=== PATIENT | male | born 1975 | race Two or more races ===

== ENCOUNTER 2022-07-02 11:11 | Inpatient (IN) | payer OTHER ==
[~2022-07-02] VITALS: Ht 165.1 cm; Wt 78.0 kg
[2022-07-02] MEDS ORDERED: SODIUM CHLORIDE 0.9% 1000ML 1,000 ML IV STA (11:19)
[2022-07-02] MEDS ORDERED: ONDANSETRON HCL INJ 2MG/ML 2ML 2 MG/ML VIAL IV STA (11:19)
[2022-07-02] MEDS ORDERED: Morphine 4mg INJECTION 4 MG/ML INJ IV STA (11:19)
[2022-07-02 11:49] LABS: BASOPHILS # (AUTO) 0.1 (0.0-0.1); BASOPHILS % 0.6 % (0.0-1.0); HEMATOCRIT 49.7 % (38.2-49.6); HEMOGLOBIN 17.9 g/dL (14.0-18.0); LYMPHOCYTES # (AUTO) 0.7 (1.0-3.2); LYMPHOCYTES % 5.5 % (18.0-39.1); MEAN CORPUSCULAR HEMOGLOBIN 30.2 pg (28-32); MEAN CORPUSCULAR VOLUME 83.8 fL (81-99); MONOCYTES # (AUTO) 0.9 (0.2-0.8); MONOCYTES % 6.5 % (4.4-11.3); NEUTROPHILS # (AUTO) 11.5 (2.1-6.9); NEUTROPHILS % 86.3 % (38.7-80.0); PLATELET COUNT 161 x10e3/uL (140-360); RED BLOOD COUNT 5.93 x10e6/uL (4.3-5.7); RED CELL DISTRIBUTION WIDTH 11.7 % (11.7-14.4)
[2022-07-02] MEDS: FAMOTIDINE 20 MG/2 ML VIAL IV SCH ×2 (11:50→17:47)
[2022-07-02 12:16] LABS: ALBUMIN 3.7 g/dL (3.5-5.0); ANION GAP 18.5 mmol/L (8-16); CALCIUM 9.2 mg/dL (8.4-10.2); CREATININE, SERUM 0.82 mg/dL (0.72-1.25); POTASSIUM 3.5 mmol/L (3.5-5.1)
[2022-07-02 12:24] LABS: CREATINE KINASE MB 0.7 ng/mL (0-5.0)
[2022-07-02] MEDS ORDERED: IOPAMIDOL 370 MG/ML 100 ML INFUS..BTL INJ ONE (12:28)
[2022-07-02 13:30] LABS: COLOR,URINE YELLOW (YELLOW)
[2022-07-02 13:31] LABS: CLARITY,URINE CLOUDY (CLEAR); KETONES,URINE 2+ (NEGATIVE); LEUKOCYTE ESTERASE ,URINE NEGATIVE (NEGATIVE); NITRITE,URINE POSITIVE (NEGATIVE); PROTEIN,URINE DIPSTICK 2+ (NEGATIVE); URINE UROBILINOGEN 1 mg/dL (0.2 - 1)
[2022-07-02 13:32] LABS: BACTERIA,URINE MANY /HPF; EPITHELIAL CELLS,URINE MODERATE /LPF; TRANSITIONAL EPI CELLS,URINE FEW
[2022-07-02] MEDS ORDERED: ONDANSETRON HCL INJ 2MG/ML 2ML 2 MG/ML VIAL IV PRN (14:30)
[2022-07-02] MEDS: SODIUM CHLORIDE 0.9% 1000ML 1,000 ML IV SCH (14:55)
[2022-07-02] MEDS: Morphine 4mg INJECTION 4 MG/ML INJ IV PRN ×3 (14:55→23:20)
[2022-07-02 16:15] VITALS: BP 123/82
[2022-07-02 16:56] VITALS: BP 123/82
[2022-07-02 17:09] VITALS: BP 123/82
[2022-07-02] MEDS ORDERED: RABEPRAZOLE SOD20 MG PO (19:23)
[2022-07-02] MEDS ORDERED: SUCRALFATE1 GM PO (19:23)
[2022-07-02] MEDS ORDERED: ROSUVASTATIN CA20 MG PO (19:23)
[2022-07-02] MEDS ORDERED: DICYCLOMINE HCL20 MG PO (19:23)
[2022-07-02] MEDS ORDERED: METOPROLOL SUCC25 MG PO (19:23)
[2022-07-02 20:28] VITALS: BP 127/88
[2022-07-02 23:06] LABS: CREATINE KINASE 43 IU/L (30-200)
[2022-07-02 23:09] VITALS: BP 127/88
[2022-07-03] VITALS (8 sets, daily range): BP systolic 117–155; BP diastolic 82–92
[2022-07-03] MEDS: SODIUM CHLORIDE 0.9% 1000ML 1,000 ML IV SCH ×3 (03:22→14:37)
[2022-07-03] MEDS: Morphine 4mg INJECTION 4 MG/ML INJ IV PRN ×2 (03:22→08:05)
[2022-07-03 05:54] LABS: BASOPHILS % 0.2 % (0.0-1.0); EOSINOPHILS # (AUTO) 0.1 (0.0-0.4); EOSINOPHILS % 0.7 % (0.0-6.0); LYMPHOCYTES # (AUTO) 0.6 (1.0-3.2); LYMPHOCYTES % 7.5 % (18.0-39.1); MEAN CORPUSCULAR HEMOGLOBIN 30.2 pg (28-32); MEAN CORPUSCULAR HGB CONC 35.7 g/dL (31-35); MEAN CORPUSCULAR VOLUME 84.5 fL (81-99); MONOCYTES # (AUTO) 0.7 (0.2-0.8); MONOCYTES % 7.9 % (4.4-11.3); NEUTROPHILS # (AUTO) 6.9 (2.1-6.9); NEUTROPHILS % 82.4 % (38.7-80.0); PLATELET COUNT 122 x10e3/uL (140-360); RED BLOOD COUNT 4.97 x10e6/uL (4.3-5.7); RED CELL DISTRIBUTION WIDTH 12.5 % (11.7-14.4)
[2022-07-03 06:29] LABS: CREATINE KINASE 32 IU/L (30-200)
[2022-07-03 06:29] LABS: ALBUMIN 2.7 g/dL (3.5-5.0); ALBUMIN/GLOBULIN RATIO 0.8 (0.8-2.0); ANION GAP 12.9 mmol/L (8-16); CALCIUM 8.4 mg/dL (8.4-10.2); CREATININE, SERUM 0.82 mg/dL (0.72-1.25); POTASSIUM 3.9 mmol/L (3.5-5.1)
[2022-07-03] MEDS: FAMOTIDINE 20 MG/2 ML VIAL IV SCH ×2 (08:04→17:37)
[2022-07-03] MEDS ORDERED: HYDRALAZINE HCL 20 MG/ML VIAL IV PRN (09:00)
[2022-07-03] MEDS ORDERED: ACETAMINOPHEN 325 MG TAB PO PRN (09:00)
[2022-07-03] MEDS ORDERED: METOPROLOL SUCCINATE 25 MG TAB XL PO SCH (09:15)
[2022-07-03 09:31] LABS: BAND NEUTROPHILS % (MANUAL) 2 %; LYMPHOCYTES % (MANUAL) 12 % (19-48); MONOCYTES % (MANUAL) 8 % (3.4-9.0); NEUTROPHILS % (MANUAL) 77 % (40-74); PLATELET ESTIMATE SLIGHTLY DECREASED; PLATELET MORPHOLOGY COMMENT NORMAL; RBC MORPHOLOGY COMMENT NORMAL
[2022-07-03] MEDS: METOPROLOL SUCCINATE 25 MG TAB XL PO SCH (09:41)
[2022-07-03 13:14] LABS: CREATINE KINASE 30 IU/L (30-200)
[2022-07-03] MEDS: HYDROMORPHONE 1MG/1ML INJ IV PRN ×3 (13:19→22:44)
[2022-07-04] VITALS (7 sets, daily range): BP systolic 119–153; BP diastolic 78–98
[2022-07-04] MEDS: HYDROMORPHONE 1MG/1ML INJ IV PRN ×5 (03:08→21:13)
[2022-07-04 05:25] LABS: BASOPHILS % 0.3 % (0.0-1.0); EOSINOPHILS # (AUTO) 0.1 (0.0-0.4); EOSINOPHILS % 1.6 % (0.0-6.0); HEMATOCRIT 40.5 % (38.2-49.6); HEMOGLOBIN 13.9 g/dL (14.0-18.0); LYMPHOCYTES # (AUTO) 1.4 (1.0-3.2); LYMPHOCYTES % 15.9 % (18.0-39.1); MEAN CORPUSCULAR HGB CONC 34.3 g/dL (31-35); MEAN CORPUSCULAR VOLUME 87.3 fL (81-99); MONOCYTES # (AUTO) 0.9 (0.2-0.8); MONOCYTES % 10.6 % (4.4-11.3); NEUTROPHILS # (AUTO) 6.1 (2.1-6.9); NEUTROPHILS % 70.3 % (38.7-80.0); PLATELET COUNT 111 x10e3/uL (140-360); RED BLOOD COUNT 4.64 x10e6/uL (4.3-5.7); RED CELL DISTRIBUTION WIDTH 12.9 % (11.7-14.4)
[2022-07-04] MEDS: SODIUM CHLORIDE 0.9% 1000ML 1,000 ML IV SCH ×4 (05:30→22:30)
[2022-07-04 05:41] LABS: ALBUMIN 2.7 g/dL (3.5-5.0); ALBUMIN/GLOBULIN RATIO 0.7 (0.8-2.0); ANION GAP 13.6 mmol/L (8-16); CALCIUM 8.9 mg/dL (8.4-10.2); CREATININE, SERUM 0.78 mg/dL (0.72-1.25); MAGNESIUM 1.8 MG/DL (1.3-2.1); POTASSIUM 3.6 mmol/L (3.5-5.1)
[2022-07-04] MEDS: FAMOTIDINE 20 MG/2 ML VIAL IV SCH ×2 (08:39→16:32)
[2022-07-04] MEDS: METOPROLOL SUCCINATE 25 MG TAB XL PO SCH (08:40)
[2022-07-05] VITALS (7 sets, daily range): BP systolic 118–159; BP diastolic 85–108
[2022-07-05] MEDS: LORAZEPAM 1 MG TAB PO PRN ×3 (01:56→16:06)
[2022-07-05] MEDS: SODIUM CHLORIDE 0.9% 1000ML 1,000 ML IV SCH ×3 (06:30→22:03)
[2022-07-05] MEDS: METOPROLOL SUCCINATE 25 MG TAB XL PO SCH (08:29)
[2022-07-05] MEDS: FAMOTIDINE 20 MG/2 ML VIAL IV SCH ×2 (09:00→15:58)
[2022-07-05] MEDS: HYDROMORPHONE 1MG/1ML INJ IV PRN (11:50)
[2022-07-05] MEDS ORDERED: CLONIDINE HCL 0.1 MG TAB PO PRN (20:45)
[2022-07-06] VITALS (7 sets, daily range): BP systolic 128–166; BP diastolic 96–101
[2022-07-06] MEDS: SODIUM CHLORIDE 0.9% 1000ML 1,000 ML IV SCH ×2 (06:30→14:15)
[2022-07-06] MEDS: METOPROLOL SUCCINATE 25 MG TAB XL PO SCH (08:46)
[2022-07-06] MEDS: FAMOTIDINE 20 MG/2 ML VIAL IV SCH ×2 (08:46→17:00)
== END 2022-07-06 18:43 | disposition home or self-care (01) | DRG 440 ==
LOC: ER 11:22 → ERHOLD 14:23 → MED/SURG3 16:13
PROVIDERS: ADMIT Family Medicine; ATTEND Family Medicine
DX: K85.20 Alcohol induced acute pancreatitis without necrosis or infection (principal); I10 Essential (primary) hypertension; F41.9 Anxiety disorder, unspecified; I45.10 Unspecified right bundle-branch block; E78.5 Hyperlipidemia, unspecified; F32.A Depression, unspecified; F10.10 Alcohol abuse, uncomplicated; R74.01 Elevation of levels of liver transaminase levels; R53.81 Other malaise; Z20.822 Contact with and (suspected) exposure to COVID-19
CPT/HCPCS: 0223U; 36415; 71045; 74177; 80053; 81001; 82550; 82553; 83690; 83735; 84484; 85025; 93005; 94799; 99284; J1170; J2270; J2405; J2543; J7030; Q9967